=== PATIENT | male | born 1970 | race Caucasian/White ===

== ENCOUNTER 2022-01-12 02:14 | Inpatient (IN) | payer SELFPAY ==
[2022-01-12] MEDS ORDERED: PROPOFOL 20 ML ONE (04:00)
[2022-01-12 04:04] LABS: #Basophils 0.1 thou/uL (0.0-0.2); #Lymphocytes 1.5 thou/uL (1.20-3.40); #Monocytes 0.8 thou/uL (0.11-0.59); #Neutrophils 12.5 thou/uL (1.40-6.50); %Basophils 0.3 % (0.0-1.0); %Eosinophils 0.3 % (0.0-10.0); %Lymphocytes 10.2 % (21.0-51.0); %Monocytes 5.3 % (0.0-10.0); %Neutrophils 83.8 % (42.0-75.0); Hemoglobin 15.9 g/dL (14.0-18.0); Mean Corpuscular HGB CONC 34.3 g/dL (32.0-36.0); Mean Corpuscular Hemoglobin 32.9 pg (27.0-31.0); Mean Corpuscular Volume 95.6 fL (78.0-98.0); Mean Platelet Volume 7.8 fL (7.4-10.4); Platelet Count 196 thou/uL (130-400); RBC Distribution Width 12.4 % (11.5-14.5); Red Blood Cell (RBC) Count 4.85 mill/uL (4.70-6.10); White Blood Cell (WBC) Count 14.9 thou/uL (4.8-10.8)
[2022-01-12 04:22] LABS: Amphetamine Not Detected (NotDetected); Barbiturates Screen Not Detected (NotDetected); Benzodiazepine Screen Not Detected (NotDetected); Cocaine Metabolite Screen Detected (NotDetected); Methadone Not Detected (NotDetected); Methamphetamine Detected (NotDetected); Opiate Screen Detected (NotDetected); Oxycodone Screen Not Detected (NotDetected); Phencyclidine (PCP) Not Detected (NotDetected); THC/Cannabinoid Screen Not Detected (NotDetected); Tricyclic Screen Not Detected (NotDetected)
[2022-01-12 04:26] LABS: Acetaminophen Less than 10.0 mcg/mL (10.0-30.0); Alcohol Less than 10 mg/dL (Less than 10); CK (CPK) 748 U/L (30-200); Salicylate Less than 8.0 mg/dL (15.0-30.0)
[2022-01-12 04:29] LABS: ALT (SGPT) 22 U/L (8-55); AST (SGOT) 39 U/L (5-34); Albumin 3.9 g/dL (3.5-5.0); Alkaline Phosphatase 66 U/L (40-110); Anion Gap 16 mmol/L (10-20); BUN (Urea Nitrogen) 10 mg/dL (8.4-25.7); Bilirubin, Total 0.6 mg/dL (0.2-1.2); Calc. Creatinine Clearance 0 mL/min (70-130); Calcium 8.9 mg/dL (7.8-10.44); Carbon Dioxide 22 mmol/L (22-29); Chloride 108 mmol/L (98-107); Globulin 2.7 g/dL (2.4-3.5); Glucose 103 mg/dL (70-105); Potassium 3.5 mmol/L (3.5-5.1); Protein, Total 6.6 g/dL (6.0-8.3); Sodium 142 mmol/L (136-145)
[2022-01-12] MEDS ORDERED: Promethazine HCl 25 MG/ML VIAL IM PRN ×2 (07:30→18:06)
[2022-01-12] MEDS ORDERED: hydrALAZINE 20 MG/ML VIAL SLOW IVP PRN (07:30)
[2022-01-12] MEDS ORDERED: Ondansetron PF 4 MG/2 ML Vial IVP PRN (07:30)
[2022-01-12] MEDS ORDERED: Cyclobenzaprine 10 MG TAB PO PRN (07:33)
[2022-01-12] MEDS: Acetaminophen 500 MG TAB PO SCH ×3 (08:58→20:47)
[2022-01-12] MEDS: Senokot S 8.6-50 MG TAB PO SCH ×2 (09:00→20:48)
[2022-01-12] MEDS ORDERED: ceFAZolin (BATCH) 2 GM in Premix Bag 1 BAG IVPB SCH (09:00)
[2022-01-12] MEDS: Famotidine/PF 20 mg/2ml Vial SLOW IVP SCH ×2 (09:00→20:50)
[2022-01-12 09:05] LABS: SARS-CoV-2 NAA Rapid Test Not Detected (NotDetected)
[2022-01-12 09:22] VITALS: BMI 28.8
[2022-01-12] MEDS ORDERED: Morphine 4 MG/ML VIAL SLOW IVP SCH (10:45)
[2022-01-12] MEDS: Sodium Chloride 0.9% 1,000 ML IV SCH ×2 (11:20→16:26)
[2022-01-12] MEDS: traMADol HCl 50 MG TAB PO SCH ×3 (12:20→23:44)
[2022-01-12] MEDS ORDERED: ceFAZolin 2 GM/Dextrose 50 ML 2 GM in Premix Bag 1 BAG IVPB SCH (13:00)
[2022-01-12] MEDS ORDERED: ceFAZolin (BATCH) 2 GM/100 ML BAG ONE (15:19)
[2022-01-12] MEDS ORDERED: Lidocaine 2% Jelly 5 ML TUBE ONE (16:01)
[2022-01-12] MEDS ORDERED: Fentanyl 250 MCG/5 ML VIAL ONE (16:01)
[2022-01-12] MEDS ORDERED: Lidocaine 1% PF 5 ML VIAL ONE (16:22)
[2022-01-12] MEDS ORDERED: PROPOFOL 200 MG/20 ML VIAL ONE (16:22)
[2022-01-12] MEDS ORDERED: Ondansetron PF 4 MG/2 ML Vial ONE (16:22)
[2022-01-12] MEDS ORDERED: Dexamethasone 20 MG/5 ML VIAL ONE (16:22)
[2022-01-12] MEDS ORDERED: Succinylcholine 200 MG/10 ml SYRINGE FS ONE (16:22)
[2022-01-12] MEDS ORDERED: Glycopyrrolate 0.2 MG/ML 5 ML SYRINGE ONE (16:22)
[2022-01-12] MEDS ORDERED: Rocuronium Bromide 10 MG/ML (10ML VIAL) ONE (16:22)
[2022-01-12] MEDS ORDERED: Bupivacaine PF 0.5% 30 ML VIAL ONE (16:48)
[2022-01-12] MEDS ORDERED: Fentanyl 100 MCG/2 ML VIAL ONE (17:49)
[2022-01-12] MEDS ORDERED: Promethazine HCl 25 MG/ML VIAL IVPB PRN (18:06)
[2022-01-12] MEDS ORDERED: Ondansetron HCl/PF 4 MG/2 ML Vial IVP PRN (18:06)
[2022-01-12] MEDS: traMADol HCl 50 MG TAB PO PRN (20:49)
[2022-01-13] MEDS: Sodium Chloride 0.9% 1,000 ML IV SCH (00:40)
[2022-01-13] MEDS: Acetaminophen 500 MG TAB PO SCH ×4 (02:11→20:27)
[2022-01-13] MEDS: ceFAZolin (BATCH) 2 GM in Premix Bag 1 BAG IVPB SCH ×2 (03:24→09:24)
[2022-01-13] MEDS: traMADol HCl 50 MG TAB PO SCH ×3 (06:13→17:27)
[2022-01-13 06:52] LABS: #Lymphocytes 1.1 thou/uL (1.20-3.40); #Monocytes 0.4 thou/uL (0.11-0.59); %Basophils 0.1 % (0.0-1.0); %Eosinophils 0.1 % (0.0-10.0); %Lymphocytes 9.5 % (21.0-51.0); %Monocytes 3.6 % (0.0-10.0); %Neutrophils 86.8 % (42.0-75.0); Hemoglobin 14.8 g/dL (14.0-18.0); Mean Corpuscular HGB CONC 32.7 g/dL (32.0-36.0); Mean Corpuscular Hemoglobin 31.9 pg (27.0-31.0); Mean Corpuscular Volume 97.4 fL (78.0-98.0); Mean Platelet Volume 8.2 fL (7.4-10.4); Platelet Count 165 thou/uL (130-400); RBC Distribution Width 12.5 % (11.5-14.5); Red Blood Cell (RBC) Count 4.64 mill/uL (4.70-6.10); White Blood Cell (WBC) Count 11.6 thou/uL (4.8-10.8)
[2022-01-13 07:13] LABS: Anion Gap 12 mmol/L (10-20); BUN (Urea Nitrogen) 8 mg/dL (8.4-25.7); Calc. Creatinine Clearance 137 mL/min (70-130); Calcium 8.6 mg/dL (7.8-10.44); Carbon Dioxide 20 mmol/L (22-29); Chloride 108 mmol/L (98-107); Glucose 150 mg/dL (70-105); Magnesium 1.9 mg/dL (1.6-2.6); Potassium 4.1 mmol/L (3.5-5.1); Sodium 136 mmol/L (136-145)
[2022-01-13] MEDS: Senokot S 8.6-50 MG TAB PO SCH ×2 (09:15→20:27)
[2022-01-13] MEDS: traMADol HCl 50 MG TAB PO PRN (14:22)
[2022-01-13] MEDS ORDERED: CEFAZOLIN 2 GM in Sodium Chloride 0.9% 100 ML IVPB SCH (17:30)
[2022-01-13] MEDS: Lorazepam 0.5 MG TAB PO PRN (22:42)
[2022-01-14] MEDS: Acetaminophen 500 MG TAB PO SCH ×4 (02:07→20:32)
[2022-01-14] MEDS: traMADol HCl 50 MG TAB PO SCH ×5 (05:55→23:27)
[2022-01-14] MEDS: Senokot S 8.6-50 MG TAB PO SCH ×2 (09:40→20:32)
[2022-01-14] MEDS: Lorazepam 0.5 MG TAB PO PRN (23:27)
[2022-01-15] MEDS: Acetaminophen 500 MG TAB PO SCH ×3 (02:45→15:08)
[2022-01-15] MEDS: traMADol HCl 50 MG TAB PO SCH ×3 (05:50→18:22)
[2022-01-15] MEDS: Senokot S 8.6-50 MG TAB PO SCH (08:54)
[2022-01-15 17:38] VITALS: BP 140/97; TEMP 97.9
== END 2022-01-15 19:15 | disposition home or self-care (01) | DRG 511 ==
LOC: SUATTDRO 02:14 → ERS 02:14 → SURG B 07:34
PROVIDERS: ADMIT Surgery; ATTEND Surgery
PROC: 0PSH04Z Reposition Right Radius with Internal Fixation Device, Open Approach (ICD-10-PCS; principal; 2022-01-12)
PROC: 0PSK04Z Reposition Right Ulna with Internal Fixation Device, Open Approach (ICD-10-PCS; 2022-01-12)
DX: S52.301A Unspecified fracture of shaft of right radius, initial encounter for closed fracture (principal); R45.851 Suicidal ideations; Z20.822 Contact with and (suspected) exposure to COVID-19; S52.201A Unspecified fracture of shaft of right ulna, initial encounter for closed fracture; F20.9 Schizophrenia, unspecified; Y04.8XXA Assault by other bodily force, initial encounter; F17.210 Nicotine dependence, cigarettes, uncomplicated
CPT/HCPCS: 25565; 36415; 76000; 80048; 80053; 80306; 80307; 82550; 83735; 84100; 85025; 99152; C1713; C1874; G0390; J0690; J1100; J2270; J2405; J2704; J3010; J3490; J7050; S0020; S0028; U0002